=== PATIENT | female | born 1970 | race American Indian/Alaskan Native ===

== ENCOUNTER 2017-12-23 11:13 | Emergency (ER) | payer OTHER ==
[2017-12-23 11:28] VITALS: BMI 37.3
[2017-12-23 11:32] VITALS: BP 156/89; PULSE 62; RESP 18; TEMP 98.4; O2SAT 99
--- NOTE | 2017-12-23 11:41 | ED PDOC ---
Arrival/HPI - General Chief Complaint: Upper Extremity Problem/Injury Time Seen by Provider: 12/23/17 11:36 Historian: Patient - History of Present Illness Narrative History of Present Illness (Text): 12/23/17 11:37 47 y/o female, pmh including anemia, nkda, presents to the emergency department complaining of left upper shoulder pain x 1 hour. Patient states she was shopping when few average sized cardboard boxes fell onto her left shoulder leading to discomfort/pain to the area. Patient states unchanged pain since then with mild improvement to symptoms after taking an Advil prior to arrival. Patient denies any head injury, cervical spine injury or loss of consciousness. Patient denies any fever, chills, nausea, vomiting, diarrhea, abdominal pain, chest pain, shortness of breath, headache, dizziness/lightheadedness, numbness/ tingling, neck pain, back pain, headache, or any other complaints. Patient presents to the emergency department for medical evaluation. Time/Duration: 1 hour Symptom Onset: Gradual Symptom Course: Unchanged Quality: Aching Activities at Onset: Light Context: Other (Shopping) Past Medical History - Provider Review Nursing Documentation Reviewed: Yes - Infectious Disease Hx of Infectious Diseases: None - Tetanus Immunization Tetanus Immunization: Unknown - Cardiac Hx Cardiac Disorders: Yes (irregular heartbeat, leaky valve dx 1 1/2 yr ago) Hx Cardiac Arrhythmia: Yes - Pulmonary Hx Respiratory Disorders: No - Neurological Hx Neurological Disorder: No - HEENT Hx HEENT Disorder: No - Renal Hx Renal Disorder: No - Endocrine/Metabolic Hx Endocrine Disorders: Yes (benigh thyroid nodule) - Hematological/Oncological Hx Anemia: Yes - Integumentary Hx Dermatological Disorder: No - Musculoskeletal/Rheumatological Hx Musculoskeletal Disorders: No Hx Falls: No - Gastrointestinal Hx Gastrointestinal Disorders: No - Genitourinary/Gynecological Hx Genitourinary Disorders: No - Psychiatric Hx Psychophysiologic Disorder: No Hx Depression: No Hx Emotional Abuse: No Hx Physical Abuse: No Hx Substance Use: No - Surgical History Hx Breast Biopsy: Yes Hx Musculoskeletal Surgery: Yes (implant to right foot on 01/04/12 to correct flat arch) - Anesthesia Hx Anesthesia: Yes Hx Anesthesia Reactions: No Hx Malignant Hyperthermia: No - Suicidal Assessment Feels Threatened In Home Enviroment: No Family/Social History - Physician Review Nursing Documentation Reviewed: Yes Family/Social History: No Known Family HX Smoking Status: Never Smoked Hx Alcohol Use: No Hx Substance Use: No Hx Substance Use Treatment: No Allergies/Home Meds Allergies/Adverse Reactions: Allergies No Known Allergies Allergy (Verified 09/16/14 17:04) Home Medications: Home Meds Medication Instructions Recorded Confirmed Ferrous Sulfate [Feosol] 1 tab PO DAILY 12/23/17 12/23/17 Review of Systems - Physician Review All systems were reviewed & negative as marked: Yes - Review of Systems Constitutional: absent: Fatigue, Fevers ENT: absent: Hearing Changes Respiratory: absent: SOB, Cough Cardiovascular: absent: Chest Pain, MEZA Gastrointestinal: absent: Abdominal Pain, Diarrhea, Nausea, Vomiting Musculoskeletal: Arthralgias (left upper shoulder pain). absent: Back Pain, Neck Pain, Myalgias Skin: absent: Rash, Pruritis Neurological: absent: Headache, Dizziness Physical Exam Vital Signs Reviewed: Yes Vital Signs Temp Pulse Resp BP Pulse Ox 12/23/17 11:31 98.4 F 62 18 156/89 H 99 Temperature: Afebrile Blood Pressure: Hypertensive Pulse: Regular Respiratory Rate: Normal Appearance: Positive for: Well-Appearing, Non-Toxic, Comfortable Pain Distress: Mild Mental Status: Positive for: Alert and Oriented X 3 - Systems Exam Head: Present: Atraumatic, Normocephalic Pupils: Present: PERRL Extroacular Muscles: Present: EOMI Conjunctiva: Present: Normal Mouth: Present: Moist Mucous Membranes Neck: Present: Normal Range of Motion Respiratory/Chest: Present: Clear to Auscultation, Good Air Exchange. No: Respiratory Distress, Accessory Muscle Use Cardiovascular: Present: Regular Rate and Rhythm, Normal S1, S2. No: Murmurs Abdomen: No: Tenderness, Distention, Peritoneal Signs Back: Present: Normal Inspection Upper Extremity: Present: Normal Inspection, Other (Lt. shouler: +ttp on the anterior shoulder joint, no swelling, no deformity, FROM without limitation, sensation intact, motor 5/5, +radial pulse, capillary refill< 2 seconds, neurovascular intact. ). No: Cyanosis, Edema Lower Extremity: Present: Normal Inspection. No: Edema Neurological: Present: GCS=15, CN II-XII Intact, Speech Normal Skin: Present: Warm, Dry, Normal Color. No: Rashes Psychiatric: Present: Alert, Oriented x 3, Normal Insight, Normal Concentration Medical Decision Making ED Course and Treatment: 12/23/17 11:36 Impression: 47 year old female presents to the emergency department complaining of left upper shoulder discomfort. Plan: -- test -- X-ray of left Shoulder -- Reassess and disposition 12/23/17 13:09 -Urine hcg is negative. -Lt. shoulder xray show no fracture or dislocation -Pain decreased -Discharge home with naproxen, sling, follow up with your own pmd and orthopedic within 2 days, return to the ER for any new or worsening signs or symptoms. - RAD Interpretation Radiology Orders: 12/23/17 11:41 SHOULDER LEFT [RAD] Stat Date of service: 12/23/2017 PROCEDURE: Radiographs of the Left Shoulder HISTORY: lt. shoulder pain s/p injury COMPARISON: No prior. FINDINGS: BONES: Normal. No fracture. JOINTS: Normal. Glenohumeral and acromioclavicular joints preserved. No osteoarthritis. SOFT TISSUES: Normal. OTHER FINDINGS: None. IMPRESSION: Normal radiographs of the left shoulder. [employer] Tender: Radiologist - PA / SEC[employer] SALES CONSULTANT / Resident Statement MD/DO has reviewed & agrees with the documentation as recorded. - Scribe Statement The provider has reviewed the documentation as recorded by the Scribe Tana Greene. All medical record entries made by the Scribe were at my direction and personally dictated by me. I have reviewed the chart and agree that the record accurately reflects my personal performance of the history, physical exam, medical decision making, and the department course for this patient. I have also personally directed, reviewed, and agree with the discharge instructions and disposition. Disposition/Present on Arrival - Present on Arrival Any Indicators Present on Arrival: No History of DVT/PE: No History of Uncontrolled Diabetes: No Urinary Catheter: No History of Decub. Ulcer: No History Surgical Site Infection Following: None - Disposition Have Diagnosis and Disposition been Completed?: Yes Diagnosis: Shoulder injury, Shoulder pain Disposition: HOME/ ROUTINE Disposition Time: 12:11 Patient Plan: Discharge Condition: IMPROVED Additional Instructions: -Discharge home with naproxen, sling, follow up with your own pmd and orthopedic within 2 days, return to the ER for any new or worsening signs or symptoms. Prescriptions: Naproxen 500 mg PO BID PRN #20 tablet PRN Reason: Other Referrals: Ian Willard III, MD [Medical Doctor] - Follow up with primary Forms: [employer] (Pashto), WORK NOTE
--- NOTE | 2017-12-23 13:42 | RAD ---
Date of service: 12/23/2017 PROCEDURE: Radiographs of the Left Shoulder HISTORY: lt. shoulder pain s/p injury COMPARISON: No prior. FINDINGS: BONES: Normal. No fracture. JOINTS: Normal. Glenohumeral and acromioclavicular joints preserved. No osteoarthritis. SOFT TISSUES: Normal. OTHER FINDINGS: None. IMPRESSION: Normal radiographs of the left shoulder.
== END 2017-12-23 13:45 | disposition home or self-care (01) ==
LOC: ED 11:13
DX: S49.92XA Unspecified injury of left shoulder and upper arm, initial encounter (principal); W22.8XXA Striking against or struck by other objects, initial encounter; Y92.59 Other trade areas as the place of occurrence of the external cause; M25.512 Pain in left shoulder

== ENCOUNTER 2018-04-17 09:08 | Emergency (ER) | payer OTHER ==
[2018-04-17 09:08] VITALS: BMI 37.3
[2018-04-17 09:28] VITALS: RESP 18
--- NOTE | 2018-04-17 09:38 | ED PDOC ---
Arrival/HPI - General Chief Complaint: Female Genitourinary Historian: Patient - History of Present Illness Narrative History of Present Illness (Text): 04/17/18 09:38 A 48 y/o F w/ pmhx of a yeast infection, anemia, and nkda, presents to the emergency department complaining of a urine infection for the past 2 days. Patient reports experiencing slight dysuria these past 2 days and has been taking Azo for the pain to some relief. However when symptoms persisted, patient decided to go to the ER. Patient reports her LNMP was on to Apr.08. Patient denies any fever, chills, abdominal pain, hematuria, back pain, vaginal discharge, or any other complaints. PMD: Dipti Higuera Time/Duration: Other (2 days) Symptom Onset: Gradual Symptom Course: Unchanged Activities at Onset: Light Context: Home Past Medical History - Infectious Disease Hx of Infectious Diseases: None - Tetanus Immunization Tetanus Immunization: Unknown - Cardiac Hx Cardiac Disorders: Yes (irregular heartbeat, leaky valve dx 1 1/2 yr ago) Hx Cardiac Arrhythmia: Yes - Pulmonary Hx Respiratory Disorders: No - Neurological Hx Neurological Disorder: No - HEENT Hx HEENT Disorder: No - Renal Hx Renal Disorder: No - Endocrine/Metabolic Hx Endocrine Disorders: Yes (benigh thyroid nodule) - Hematological/Oncological Hx Anemia: Yes - Integumentary Hx Dermatological Disorder: No - Musculoskeletal/Rheumatological Hx Musculoskeletal Disorders: No Hx Falls: No - Gastrointestinal Hx Gastrointestinal Disorders: No - Genitourinary/Gynecological Hx Genitourinary Disorders: No - Psychiatric Hx Psychophysiologic Disorder: No Hx Depression: No Hx Emotional Abuse: No Hx Physical Abuse: No Hx Substance Use: No - Surgical History Hx Breast Biopsy: Yes Hx Musculoskeletal Surgery: Yes (implant to right foot on 01/04/12 to correct flat arch) - Anesthesia Hx Anesthesia: Yes Hx Anesthesia Reactions: No Hx Malignant Hyperthermia: No - Suicidal Assessment Feels Threatened In Home Enviroment: No Family/Social History Smoking Status: Never Smoked Hx Alcohol Use: No Hx Substance Use: No Hx Substance Use Treatment: No Allergies/Home Meds Allergies/Adverse Reactions: Allergies No Known Allergies Allergy (Verified 04/17/18 09:29) Home Medications: Home Meds Medication Instructions Recorded Confirmed Ferrous Sulfate [Feosol] 1 tab PO DAILY 12/23/17 12/23/17 Review of Systems - Physician Review All systems were reviewed & negative as marked: Yes - Review of Systems Constitutional: absent: Fevers, Night Sweats Gastrointestinal: absent: Abdominal Pain Genitourinary Female: Dysuria. absent: Hematuria, Vaginal Discharge Musculoskeletal: absent: Back Pain Physical Exam Vital Signs Reviewed: Yes Vital Signs Temp Pulse Resp BP Pulse Ox 04/17/18 09:24 98.9 F 88 18 125/75 97 Temperature: Afebrile Blood Pressure: Normal Pulse: Regular Respiratory Rate: Normal Appearance: Positive for: Well-Appearing, Non-Toxic - Systems Exam Head: Present: Atraumatic, Normocephalic Pupils: Present: PERRL Extroacular Muscles: Present: EOMI Conjunctiva: Present: Normal Respiratory/Chest: Present: Clear to Auscultation, Good Air Exchange. No: Respiratory Distress, Accessory Muscle Use Cardiovascular: Present: Regular Rate and Rhythm, Normal S1, S2. No: Murmurs Abdomen: No: Tenderness, Distention, Peritoneal Signs Back: Present: Normal Inspection. No: CVA Tenderness Upper Extremity: Present: Normal Inspection. No: Cyanosis, Edema Lower Extremity: Present: Normal Inspection. No: Edema Neurological: Present: GCS=15, CN II-XII Intact, Speech Normal Skin: Present: Warm, Dry, Normal Color. No: Rashes Psychiatric: Present: Alert, Oriented x 3, Normal Insight, Normal Concentration Medical Decision Making ED Course and Treatment: 04/17/18 09:38 Impression: A 48 y/o F presents to the emergency department complaining of a urine infection. Differential Diagnosis included but are not limited to: -- UTI -- Pyelo Plan: -- Urine culture -- Urinalysis -- Reassess and disposition Prior Visits: Notes and results from previous visits were reviewed. Progress Notes: - Lab Interpretations Lab Results: Lab Results 04/17/18 09:22: Urine Color Yellow, Urine Appearance Clear, Urine pH 6.5, Ur Specific [place] 1.020, Urine Protein Negative, Urine Glucose (UA) Negative, Urine Ketones Negative, Urine Blood Negative, Urine Nitrate Negative, Urine Bilirubin Negative, Urine Urobilinogen 0.2, Ur Leukocyte Esterase Negative I have reviewed the lab results: Yes - Scribe Statement The provider has reviewed the documentation as recorded by the Scribe Sheila Cruz All medical record entries made by the Scribe were at my direction and personally dictated by me. I have reviewed the chart and agree that the record accurately reflects my personal performance of the history, physical exam, medical decision making, and the department course for this patient. I have also personally directed, reviewed, and agree with the discharge instructions and disposition. Disposition/Present on Arrival - Present on Arrival Any Indicators Present on Arrival: No History of DVT/PE: No History of Uncontrolled Diabetes: No Urinary Catheter: No History of Decub. Ulcer: No History Surgical Site Infection Following: None - Disposition Have Diagnosis and Disposition been Completed?: Yes Diagnosis: Dysuria Disposition: HOME/ ROUTINE Disposition Time: 10:24 Patient Plan: Discharge Patient Problems: Current Active Problems Problem Status Onset Kidney stone Acute Condition: STABLE Discharge Instructions (ExitCare): Dysuria, Adult (DC), Urinary Tract Infection, Adult (DC) Print Language: [email or web address] Additional Instructions: All medical record entries made by the Scribe were at my direction and p ersonally dictated by me. I have reviewed the chart and agree that the record accurately reflects my personal performance of the history, physical exam, medical decision making, and the department course for this patient. I have also personally directed, reviewed, and agree with the discharge instructions and disposition. Please be aware that we will call you if urine culture is positive within the next 24-48 hours Referrals: Dipti Enrique MD [Primary Care Provider] - Follow up with primary Forms: [employer] (Irish), WORK NOTE
[2018-04-17 10:11] LABS: PH,URINE 6.5 (4.7-8.0); URINE APPEARANCE CLEAR (CLEAR); URINE BILIRUBIN NEGATIVE (NEGATIVE); URINE BLOOD NEGATIVE (NEGATIVE); URINE COLOR YELLOW (YELLOW); URINE GLUCOSE (UA) NEGATIVE (NEGATIVE); URINE LEUKOCYTE ESTERASE NEGATIVE Leu/uL (NEGATIVE); URINE PROTEIN NEGATIVE mg/dL (<30 mg/dL); URINE UROBILINOGEN 0.2 E.U./dL (<1 E.U./dL)
[2018-04-17 10:34] VITALS: BP 125/73; PULSE 73; TEMP 98.8; O2SAT 96
== END 2018-04-17 10:39 | disposition home or self-care (01) ==
LOC: ED 09:08
DX: R30.0 Dysuria (principal)